=== PATIENT | male | born 1960 | race Caucasian/White ===

== ENCOUNTER 2019-04-22 04:44 | Emergency (ER) | payer OTHER ==
[2019-04-22] MEDS ORDERED: FLUORESCEIN NA 1 EA STRIP ONE (04:57)
[2019-04-22] MEDS ORDERED: TETRACAINE 0.5% OPHTH SOLN 2 ML BOTTLE ONE (04:57)
[2019-04-22 05:00] VITALS: BP 139/91; PULSE 63; TEMP 97.6; BMI 30.9
[2019-04-22] MEDS ORDERED: TOBRA 0.3%/DEXAMETH 0.1% OPHTHALMIC SUSP 2.5 ML BTL OU STA (05:05)
[2019-04-22] MEDS ORDERED: TOBRA 0.3%/DEXAMETH 0.1% OPHTHALMIC SUSP 2.5 ML BTL ONE (05:06)
--- NOTE | 2019-04-22 05:08 | PDOC ---
History of Present Illness - General Chief Complaint: Eye Problem Stated Complaint: EYE PROBLEM Time Seen by Provider: 04/22/19 05:01 History Source: Patient Exam Limitations: No Limitations - History of Present Illness Initial Comments: 04/22/19 05:03 This is a 59-year-old male who comes in complaining of discharge and burning with both eyes bilateral x2 days now. Patient went to the pharmacy and they gave him an eyewash which he has been using without improvement. Patient otherwise has history of hypertension high cholesterol but is healthy. Patient denies any fevers or chills. Patient denies any trauma or injury to either eye bilateral. Allergies: as per nursing notes Past Medical History: As per HPI Social history: Lives with family. No smoking. No alcohol. No illicit drugs. Surgical history: None General: No fevers or chills, no weakness, no weight loss HEENT: No change in vision. No sore throat,. No ear pain, discharge from eyes bilateral CardioVascular: no chest discomfort. No shortness of breath Respiratory:No cough, or wheezing. Gastrointestinal: no nausea, vomiting, diarrhea or constipation, No rectal bleeding Genitourinary: No dysuria, hematuria, or frequency Musculoskeletal: No joint or muscle pain or swelling Neurologic: No headache, vertigo, dizziness or loss of consciousness Psychiatric: nor depression Skin: No rashes or easy bruising Endocrine: no increased thirst or abnormal weight change Allergic: no skin or latex allergy All other systems reviewed and normal GENERAL: The patient is awake, alert, and fully oriented, in no acute distress. HEAD: Normal with no signs of trauma. EYES: Pupils equal, round and reactive to light, extraocular movements intact, sclera anicteric conjunctiva is injected with slightly purulent discharge from both eyes bilateral. EXTREMITIES:atraumatic, Normal range of motion, no edema. NEUROLOGICAL: Normal speech, normal gait. PSYCH: Normal mood, normal affect. SKIN: Warm, Dry, normal turgor, no rashes or lesions noted. Assessment and plan Past History - Past Medical History Allergies/Adverse Reactions: Allergies Allergy/AdvReac Type Severity Reaction Status Date / Time No Known Allergies Allergy Unverified 12/27/12 14:25 Home Medications: Ambulatory Orders Tobramycin Sulf/Dexamethasone [Tobradex *Eye Drops*] 1 drop OU Q4HWA #1 bottle 04/22/19 COPD: No HTN: Yes Hypercholesterolemia: Yes - Surgical History Cholecystectomy: Yes - Psycho Social/Smoking Cessation Hx Smoking History: Former smoker Have you smoked in the past 12 months: No Information on smoking cessation initiated: No *Physical Exam - Vital Signs Last Vital Signs Temp Pulse Resp BP Pulse Ox 97.6 F 63 16 139/91 95 04/22/19 04:52 04/22/19 04:52 04/22/19 04:52 04/22/19 04:52 04/22/19 04:52 Discharge - Discharge Information Problems reviewed: Yes Clinical Impression/Diagnosis: Acute conjunctivitis, bilateral Qualifiers: Acute conjunctivitis type: unspecified Qualified Code(s): H10.33 - Unspecified acute conjunctivitis, bilateral Condition: Stable Disposition: HOME - Admission No - Follow up/Referral Referrals: Mane Garza DO [Primary Care Provider] - - Patient Discharge Instructions Additional Instructions: Put 1 drop of the antibiotic eye solution in each eye every 4 hours while awake until symptoms have resolved usually about 5 days. Follow-up with an bingo manager Return to the emergency department immediately with ANY new, persistent or worsening symptoms. Continue any medications as previously prescribed by your physician. You should follow up with your primary doctor as soon as possible regarding today's emergency department visit. . Please make sure your doctor reviews the results of your emergency evaluation. Thank you for coming to the Emergency Department today for your care. It was a pleasure to see you today. Please note that your evaluation is INCOMPLETE until you follow-up with your doctor. - Post Discharge Activity
== END 2019-04-22 05:14 | disposition home or self-care (01) ==
LOC: FER 04:44
DX: H10.33 Unspecified acute conjunctivitis, bilateral (principal); Z87.891 Personal history of nicotine dependence; I10 Essential (primary) hypertension; E78.00 Pure hypercholesterolemia, unspecified
CPT/HCPCS: 99281-25

== ENCOUNTER 2020-09-07 00:08 | Emergency (ER) | payer BC, OTHER ==
[2020-09-07 00:16] VITALS: BP 134/94; PULSE 74; TEMP 97.8; BMI 31.6
[2020-09-07] MEDS ORDERED: predniSONE 10 MG TABLET (UD) PO ONE (00:32)
[2020-09-07] MEDS ORDERED: FAMOTIDINE 20 MG TABLET PO ONE (00:32)
[2020-09-07] MEDS ORDERED: predniSONE 10 MG TABLET (UD) ONE (00:37)
[2020-09-07] MEDS ORDERED: FAMOTIDINE 20 MG TABLET ONE (00:37)
== END 2020-09-07 00:44 | disposition home or self-care (01) ==
LOC: FER 00:08
DX: L50.9 Urticaria, unspecified (principal)
CPT/HCPCS: 99283-25